=== PATIENT | female | born 1945 | race Asian ===

== ENCOUNTER 2020-12-03 13:51 | Emergency (ER) | payer MEDICARE, OTHER ==
[~2020-12-03] VITALS: Ht 162.6 cm; Wt 56.8 kg
[2020-12-03 18:00] VITALS: BP 130/70
== END 2020-12-03 18:15 | disposition home or self-care (01) ==
LOC: EMS 14:02
DX: H11.32 Conjunctival hemorrhage, left eye (principal)
CPT/HCPCS: 70450; 99285